=== PATIENT | male | born 1995 | race Caucasian/White ===

== ENCOUNTER 2020-07-20 07:31 | Emergency (ER) | payer OTHER ==
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
--- NOTE | 2020-07-20 09:48 | CT ---
Right foot: Multiple axial sections through the right foot were obtained. Reconstructed coronal and sagittal images were also obtained. Comparison: Prior right foot study performed earlier on the same day (7:41 AM). Findings: Slightly comminuted fracture is seen within the proximal shaft of the fifth metatarsal. Alignment remains close to anatomic. Comminuted and slightly displaced fracture is noted at the base of the second metatarsal. There is slight shifting of the base of the first metatarsal in a lateral direction. Small fracture fragment is also noted within the inferior lateral cunieform bone which is slightly displaced. Minimal fracture with slight displacement is also noted within the inferior intermediate cunieform bone. Several small calcifications are seen off the medial distal tibia which appeared to be old. Bone island is noted within the navicular bone. Impression: 1. Fracture involving the proximal fifth metatarsal. 2. Comminuted fracture with displacement is seen at the base of the second metatarsal. 3. Small displaced fractures involving the inferior intermediate and lateral cunieform bones. 4. Minimal displacement of the base of the first metatarsal in a lateral direction compatible with small ligamentous injury. 5. Soft tissue swelling. Diagnostic code #3
--- NOTE | 2020-07-20 14:25 | CR ---
Right foot: 4 views of the right foot were obtained. Comparison: No previous foot study is available, CT performed later on the same day. Asymmetric joint space is noted within the base of the first metatarsal with minimal shifting laterally compatible with Lisfranc injury. Fracture is noted at the base of the fifth metatarsal. Fracture is also seen involving the base of the second metatarsal. Cuneiform fractures seen on subsequent CT exam are not well identified on this plain film exam. Diffuse soft tissue swelling is noted. Impression: 1. Lisfranc injury involving the base of the first metatarsal. 2. Fracture within the base of the fifth metatarsal as well as fracture within the base of the second metatarsal. 3. Diffuse soft tissue swelling. Diagnostic code #3
== END 2020-07-20 11:24 | disposition home or self-care (01) ==
LOC: JD.ED 07:31
DX: S97.81XA Crushing injury of right foot, initial encounter (principal); S92.351A Displaced fracture of fifth metatarsal bone, right foot, initial encounter for closed fracture; S92.221A Displaced fracture of lateral cuneiform of right foot, initial encounter for closed fracture; V83.5XXA Driver of special industrial vehicle injured in nontraffic accident, initial encounter
CPT/HCPCS: 29515; 73630-26-RT; 73630-RT; 73700-26-RT; 73700-RT; 99283; 99283-25